=== PATIENT | female | born 2000 | race African-American/Black ===

== ENCOUNTER 2024-10-25 13:24 | Emergency (ER) | payer MEDICAID ==
[~2024-10-25] VITALS: Ht 165.1 cm; Wt 82.0 kg
[2024-10-25 13:28] VITALS: O2SAT 100
[2024-10-25] MEDS: ONDANSETRON 4MG ODT PO ONE (14:28)
[2024-10-25] MEDS: ACETAMINOPHEN 325MG TABLET PO ONE (14:28)
[2024-10-25 15:12] LABS: BASOPHILS % 0.4 % (0.0-2.0); EOSINOPHILS % 1.3 % (0.0-5.0); HEMATOCRIT. 38.2 % (36.0-48.0); HEMOGLOBIN. 12.0 g/dL (12.0-16.0); LYMPHOCYTES % 22.8 % (20.0-50.0); MEAN PLATELET VOLUME 9.6 fl (7.4-10.4); MONOCYTES % 5.0 % (2.0-8.0); NEUTROPHILS % 70.5 % (40.0-76.0); PLATELET 242 x1000/uL (130-400); RED BLOOD CELL COUNT 4.66 mill/uL (4.2-5.4); RED CELL DISTRIBUTION WIDTH 15.8 % (11.6-14.6)
[2024-10-25 15:17] LABS: INR 1.0
[2024-10-25 15:19] LABS: CREATININE 0.8 mg/dL (0.6-1.0); ETHANOL BLOOD < 10 mg/dL (<10); UREA NITROGEN BLOOD 6 mg/dL (9-23)
[2024-10-25 15:28] LABS: HCG SCREEN NEGATIVE
[2024-10-25] MEDS: ONDANSETRON HCL 4MG/2ML INJ IV ONE (16:31)
[2024-10-25] MEDS: TETRACAINE 0.5% OPHTH DROPS 4ML LEFTEYE ONE (16:32)
[2024-10-25] MEDS: FLUORESCEIN SODIUM 1MG/STRIP LEFTEYE ONE (16:32)
[2024-10-25] MEDS: MORPHINE SULFATE 4 MG/ML INJ (FOR IV/IM USE) IV ONE (16:32)
[2024-10-25] MEDS: KCL 10MEQ/50ML PREMIX 50 ML IV SCH (17:16)
[2024-10-25] MEDS: MORPHINE SULFATE 2 MG/ML INJ (NOT FOR IM USE) IV NR (20:30)
[2024-10-25 21:02] VITALS: BP 126/56; PULSE 62; RESP 19; TEMP 36.7; O2SAT 100
== END 2024-10-25 21:34 | disposition short-term general hospital (02) ==
LOC: ER 13:24
DX: S02.32XA Fracture of orbital floor, left side, initial encounter for closed fracture (principal); S06.30AA Unspecified focal traumatic brain injury with loss of consciousness status unknown, initial encounter; E87.6 Hypokalemia; Y09 Assault by unspecified means; Y93.89 Activity, other specified; Y92.89 Other specified places as the place of occurrence of the external cause; Y99.8 Other external cause status
CPT/HCPCS: 80048; 80320; 84703; 85025; 85610; 85730; 86850; 86900; 86901; 36415; 70450; 70486; 72125; 96365; 96366; 96375; 96376; 99291; Q0162; J2405; J3480; J2270 ×2; G0480